=== PATIENT | female | born 1980 | race Caucasian/White ===

== ENCOUNTER 2024-01-14 07:11 | Emergency (ER) | payer OTHER ==
[2024-01-14] MEDS: predniSONE 20 MG Tab PO ONE (08:19)
[2024-01-14] MEDS: Albuterol/Ipratropium 3.0-0.5 MG/3 ML Neb Soln NEB ONE (08:19)
== END 2024-01-14 08:33 | disposition home or self-care (01) ==
LOC: VM.ED 07:11
DX: J06.9 Acute upper respiratory infection, unspecified (principal); J45.41 Moderate persistent asthma with (acute) exacerbation; R09.81 Nasal congestion; Z91.048 Other nonmedicinal substance allergy status; Z88.8 Allergy status to other drugs, medicaments and biological substances; Z79.899 Other long term (current) drug therapy; Z86.16 Personal history of COVID-19
CPT/HCPCS: 99284; J7512; J7620-GY